=== PATIENT | male | born 1995 | race Two or more races ===

== ENCOUNTER 2017-04-09 18:28 | Emergency (ER) | payer OTHER ==
--- NOTE | 2017-04-09 20:46 | ED Physician Chart ---
ED Chief Complaint/HPI - Patient Information Date Seen:: 04/09/17 Time Seen:: 20:46 Chief Complaint:: Cough History of Present Illness:: 22 yo male developed cough, fever, chest congestion for 1 week. 100.9 at PCP 2 days ago. Was given promethazine. Still cough, Sore throat Allergies:: Allergies Allergy/AdvReac Type Severity Reaction Status Date / Time No Known Allergies Allergy Verified 04/09/17 18:43 Vitals:: Vital Signs - 8 hr 04/09/17 19:08 Temp 97.7 F HR 85 RR 17 BP 123/87 O2 Sat % 98 ED Past Medical History - Past Medical History Past Medical History: No significant medical hx Social History: Smoker, Alcohol, No Drug Use Surgical History: other (wisdom teeth removal) ED Septic Shock - <6hrs of presentation: Vital Signs: Vital Signs - 8 hr 04/09/17 19:08 Temp 97.7 F HR 85 RR 17 BP 123/87 O2 Sat % 98
[2017-04-09 21:31] LABS: % BASOPHILS 0.8 % (0.0-2.0); % EOSINOPHILS 2.3 % (0.0-5.0); % LYMPHOCYTES 35.3 % (20.0-50.0); % MONOCYTES 8.6 % (2.0-10.0); EOSINOPHILE ABSOLUTE 0.1 Th/cmm (0.1-0.4); HEMATOCRIT 41.9 % (41.0-60); HEMOGLOBIN 14.1 gm/dL (12-16); LYMPHOCYTE ABSOLUTE 1.2 Th/cmm (1.5-3.0); MEAN CELL VOLUME 88.8 fl (80-99); MEAN CORPUSCULAR HEMOGLOBIN 29.9 pg (26.0-30.0); MEAN CORPUSCULAR HGB CONC 33.7 pg (28.0-36.0); MEAN PLATELET VOLUME 8.8 fl; MONOCYTE ABSOLUTE 0.3 Th/cmm (0.3-1.0); NEUTROPHILE ABSOLUTE 1.7 Th/cmm (1.8-8.0); PLATELET COUNT 155 Th/cmm (150-400); RED BLOOD COUNT 4.72 Mil/cmm (4.30-5.70); RED CELL DISTRIBUTION WIDTH 11.3 % (11.5-20.0)
[2017-04-09 21:33] LABS: WHITE BLOOD COUNT 3.3 Th/cmm (4.8-10.8)
[2017-04-09 21:46] LABS: ALB/GLOB RATIO 1.9 (1.0-1.8); ALBUMIN 4.5 gm/dL (4.2-5.5); ALKALINE PHOSPHATASE 63 U/L (34-104); ANION GAP 10.1 (7.0-16.0); BILIRUBIN,TOTAL 0.4 mg/dL (0.3-1.0); BUN - UREA NITROGEN 8 mg/dL (7-25); CHLORIDE 104 mEq/L (98-107); CREATININE - SERUM 0.8 mg/dL (0.7-1.3); GFR AFRICAN-AMERICAN > 60.0 ml/min (>90); GFR NON AFRICAN-AMERICAN > 60.0 ml/min; GLUCOSE 93 mg/dL (70-105); POTASSIUM SERUM 4.1 mEq/L (3.5-5.1); SGOT 21 U/L (13-39); SGPT/ALT 15 U/L (7-52); SODIUM SERUM 136 mEq/L (136-145); TOTAL PROTEIN,SERUM 6.9 gm/dL (6.0-8.3)
--- NOTE | 2017-04-10 09:47 | Diagnostic Imaging Report ---
Portable chest x-ray History: Cough Allowing for portable technique the heart size is normal. No focal pulmonary parenchymal processes. No hilar or mediastinal abnormalities. Impression: No acute abnormalities.
== END 2017-04-09 22:48 | disposition home or self-care (01) ==
LOC: ER 18:28
DX: R05 Cough (principal); R50.9 Fever, unspecified; R07.89 Other chest pain; J02.9 Acute pharyngitis, unspecified; F17.200 Nicotine dependence, unspecified, uncomplicated
CPT/HCPCS: 99285; 96372; 71010; 36415; 83605; 85025; 80053; 87040; J0290

== ENCOUNTER 2018-10-23 23:53 | Emergency (ER) | payer MEDICAID, OTHER ==
--- NOTE | 2018-10-24 00:25 | ED Physician Chart ---
ED Chief Complaint/HPI - Patient Information Date Seen:: 10/24/18 Time Seen:: 00:10 Chief Complaint:: Transient syncope History of Present Illness:: Pt came in by private auto because pt reportedly had a transient episode of fainting that might have lasted a few seconds at about 11:30 pm last evening when he was having nausea/vomiting after eating many small donuts. Pt now feels better. No bodily pain or discomfort. Pt has been ambulatory and currently denies any chest pain, lightheadedness, palpitation, dyspnea, or other bodily pain/discomfort. Allergies:: Allergies Allergy/AdvReac Type Severity Reaction Status Date / Time No Known Allergies Allergy Verified 10/24/18 00:15 Vitals:: see Nurse Note Historian:: Patient Family MD/PCP:: unknown LMP:: N/A Review:: Nurse's Note Reviewed ED Review of Systems - Review of Systems General/Constitutional: No fever, No chills, No weight loss, No weakness, No edema, No loss of appetite Skin: No rash, No bruising Head: No headache, Light headed (transient) Eyes: No loss of vision, No pain, No diplopia ENT: No earache, No nasal drainage, No sore throat Neck: No neck pain, No swelling, No stiffness, No mass noted Cardio Vascular: No chest pain, No palpitations, No PND, No orthopnea Pulmonary: No SOB, No wheezing GI: Nausea (transient), Vomiting (transient with vomitus consists of gastric content. No hematemesis.), No pain G/U: No dysuria, No frequency, No hematuria Neurological: Syncope (?), No focal symptoms, No weakness, No paresthesia, No headache, No seizure, No dizziness, No confusion ED Past Medical History - Past Medical History Past Medical History: No significant medical hx Family History: Diabetes Mel[place] Social History: Smoker (Pt has been informed about health risks associated with tobacco use and has been advised to stop. Pt has been encouraged to enroll in a smoking cessation program. Pt acknowledges understanding.), Alcohol (rare use), Illicit Drug Use (with marijuana. Pt has been informed about health risks associated with the use of marijuana and has been advised to stop. Pt acknowledges understanding.), Single, Lives With Parents Employment:: unemployed. Surgical History: Appendectomy Medication: None Family Medical History - Family Member Mother History Unknown: Yes ED Physical Exam - Physical Examination General/Constitutional: Awake, Well-developed, well-nourished (male), Alert, No distress, Non-toxic appearing, Ambulatory Other Gen/Cons comments:: Breathes comfortably, speaks clearly, and interacts appropriately. Head: Atraumatic Eyes: Lids, conjuctiva normal, PERRL, EOMI Skin: Nl inspection, No skin lesions, Well hydrated, No lymphadenopathy ENMT: External ears, nose nl, Nasal exam nl, Oropharynx nl Neck: Nontender, Full ROM w/o pain, No JVD, No nuchal rigidity, No mass, No stridor Respiratory: Nl effort/Exclusion, Clear to Auscultation, No Wheeze/Rhonchi/Rales Cardio Vascular: RRR, No murmur, gallop, rubs GI: No tenderness/rebounding/guarding, No organomegaly, Normal BS's Other GI comments:: Abdomen is soft. : No CVA tenderness Extremities: No tenderness or effusion, Full ROM, No edema Neuro/Psych: Alert/oriented (oriented X 3), Mood normal, Normal gait, No focal deficits ED Labs/Radiology/EKG Results - Lab Results Results: Laboratory Tests 10/24/18 10/24/18 10/24/18 01:00 01:00 01:05 WBC 7.2 RBC 5.22 Hgb 16.2 Hct 45.6 MCV 87.3 MCH 31.0 H MCHC Differential 35.5 RDW 11.5 Plt Count 168 MPV 8.4 Neutrophils % 76.1 Lymphocytes % 18.4 L Monocytes % 3.9 Eosinophils % 0.5 Basophils % 1.1 PT INR PTT (Actin FS) Sodium Potassium Chloride Carbon Dioxide Anion Gap BUN Creatinine Est GFR ( Amer) Est GFR (Non-Af Amer) BUN/Creatinine Ratio Glucose Calcium Total Bilirubin AST ALT Alkaline Phosphatase Troponin I Total Protein Albumin Globulin Albumin/Globulin Ratio Urine Source CLEAN C Urine Color YELLOW Urine Clarity CLEAR Urine pH 6.5 Ur Specific [place] 1.020 Urine Protein NEGATIVE Urine Glucose (UA) NEGATIVE Urine Ketones NEGATIVE Urine Blood NEGATIVE Urine Nitrate NEGATIVE Urine Bilirubin NEGATIVE Urine Urobilinogen 0.2 Ur Leukocyte Esterase NEGATIVE Urine Opiates Screen NEGATIVE Urine Methadone Screen NEGATIVE Ur Barbiturates Screen NEGATIVE Ur Tricyclics Screen NEGATIVE Ur Phencyclidine Scrn NEGATIVE Amphetamines Screen NEGATIVE U Methamphetamines Scrn NEGATIVE U Benzodiazepines Scrn NEGATIVE U Cocaine Metab Screen NEGATIVE U Cannabinoids Screen POSITIVE H 10/24/18 10/24/18 10/24/18 01:05 01:05 01:05 WBC RBC Hgb Hct MCV MCH MCHC Differential RDW Plt Count MPV Neutrophils % Lymphocytes % Monocytes % Eosinophils % Basophils % PT 10.3 INR 0.99 PTT (Actin FS) 23.2 L Sodium 137 Potassium 3.7 Chloride 100 Carbon Dioxide 26.6 Anion Gap 14.1 BUN 12 Creatinine 1.0 Est GFR ( Amer) > 60.0 Est GFR (Non-Af Amer) > 60.0 BUN/Creatinine Ratio 12.0 Glucose 128 H Calcium 10.0 Total Bilirubin 0.5 AST 17 ALT 17 Alkaline Phosphatase 72 Troponin I 0.01 Total Protein 7.2 Albumin 4.8 Globulin 2.4 Albumin/Globulin Ratio 2.0 H Urine Source Urine Color Urine Clarity Urine pH Ur Specific [place] Urine Protein Urine Glucose (UA) Urine Ketones Urine Blood Urine Nitrate Urine Bilirubin Urine Urobilinogen Ur Leukocyte Esterase Urine Opiates Screen Urine Methadone Screen Ur Barbiturates Screen Ur Tricyclics Screen Ur Phencyclidine Scrn Amphetamines Screen U Methamphetamines Scrn U Benzodiazepines Scrn U Cocaine Metab Screen U Cannabinoids Screen - EKG Interpretations EKG Time:: 00:56 Rate & Rhythm: NSR with VR 79. Comments:: LAE. Incomplete RBBB and LAFB. NSSTT changes. ED Septic Shock - . Is Septic Shock (SBP<90, OR Lactate>4 mmol\L) present?: No ED Reassessment (Disposition) - Reassessment Reassessment:: 0220 Pt has been repeatedly evaluated. No recurrent N/V/D. Pt has been ambulatory without recurrent syncope or lightheadedness. Repeat body temperature is 99F. Lab and EKG findings have been reviewed with pt. Pt requests to go home now and does not want further observation/management in hospital. Aftercare instructions have been given. - Diagnosis Diagnosis:: Transient vasovagal reaction due to G.I. upset with nausea/vomiting. Resolved and currently asymptomatic. H/O marijuana use. - Aftercare/Follow up Instructions Notes:: Bed rest for today. Pt has been advised to stop marijuana use. Increase oral hydration. F/U with Dr. Ortiz or PCP of patient's choice in one day for recheck. Return to ER immediately if condition worsens or if any further questions/ problems. Medication Prescribed:: None - Patient Disposition Discharge/Transfer:: Home Time:: 02:30 Condition at Disposition:: Stable, Improved
[2018-10-24 01:15] LABS: % BASOPHILS 1.1 % (0.0-2.0); % EOSINOPHILS 0.5 % (0.0-5.0); % LYMPHOCYTES 18.4 % (20.0-50.0); % MONOCYTES 3.9 % (2.0-10.0); % NEUTROPHILS 76.1 % (40.0-80.0); BASOPHILE ABSOLUTE 0.1 Th/cumm (0-0.2); HEMATOCRIT 45.6 % (41.0-60); HEMOGLOBIN 16.2 gm/dL (12-16); LYMPHOCYTE ABSOLUTE 1.3 Th/cmm (1.5-3.0); MEAN CELL VOLUME 87.3 fl (80-99); MEAN CORPUSCULAR HGB CONC 35.5 pg (28.0-36.0); MONOCYTE ABSOLUTE 0.3 Th/cmm (0.3-1.0); NEUTROPHILE ABSOLUTE 5.5 Th/cmm (1.8-8.0); PLATELET COUNT 168 Th/cmm (150-400); RED BLOOD COUNT 5.22 Mil/cmm (4.30-5.70); RED CELL DISTRIBUTION WIDTH 11.5 % (11.5-20.0); WHITE BLOOD COUNT 7.2 Th/cmm (4.8-10.8)
[2018-10-24 01:33] LABS: INR 0.99 (0.5-1.4)
[2018-10-24 01:36] LABS: ALBUMIN 4.8 gm/dL (4.2-5.5); ALKALINE PHOSPHATASE 72 U/L (34-104); ANION GAP 14.1 (7.0-16.0); BILIRUBIN,TOTAL 0.5 mg/dL (0.3-1.0); BUN - UREA NITROGEN 12 mg/dL (7-25); CARBON DIOXIDE 26.6 mEq/L (21.0-31.0); CHLORIDE 100 mEq/L (98-107); GFR AFRICAN-AMERICAN > 60.0 ml/min (>90); GFR NON AFRICAN-AMERICAN > 60.0 ml/min; GLUCOSE 128 mg/dL (70-105); POTASSIUM SERUM 3.7 mEq/L (3.5-5.1); SGOT 17 U/L (13-39); SGPT/ALT 17 U/L (7-52); SODIUM SERUM 137 mEq/L (136-145); TOTAL PROTEIN,SERUM 7.2 gm/dL (6.0-8.3)
[2018-10-24 01:45] LABS: URINE SOURCE CLEAN C
[2018-10-24 01:55] LABS: URINE BILIRUBIN NEGATIVE (NEGATIVE); URINE BLOOD NEGATIVE (NEGATIVE); URINE GLUCOSE (UA) NEGATIVE (NEGATIVE); URINE KETONE NEGATIVE (NEGATIVE); URINE LEUKOCYTE ESTERASE NEGATIVE (NEGATIVE); URINE NITRATE NEGATIVE (NEGATIVE); URINE PH 6.5 (4.6 - 8.0); URINE PROTEIN NEGATIVE (NEGATIVE); URINE UROBILINOGEN 0.2 E.U./dL (0.2 - 1.0)
[2018-10-24 02:00] LABS: URINE CLARITY CLEAR (CLEAR); URINE COLOR YELLOW; URINE MICROSCOPIC INDICATED? NO
[2018-10-24 02:03] LABS: AMPHETAMINE URINE NEGATIVE (NEGATIVE); BARBITURATES URINE NEGATIVE (NEGATIVE); BENZODIAZEPINES QUAL URINE NEGATIVE (NEGATIVE); CANNABINOID THC POSITIVE (NEGATIVE); COCAINE METABOLITE QUAL URINE NEGATIVE (NEGATIVE); METHADONE URINE NEGATIVE (NEGATIVE); METHAMPHETAMINES QUAL URINE NEGATIVE (NEGATIVE); OPIATES (MORPHINE) QUAL. URINE NEGATIVE (NEGATIVE); PHENCYCLIDINE (PCP) URINE NEGATIVE (NEGATIVE); TRICYCLICS (TCA) QUAL. URINE NEGATIVE (NEGATIVE)
== END 2018-10-24 02:36 | disposition home or self-care (01) ==
LOC: ER 23:53
DX: R55 Syncope and collapse (principal); R11.2 Nausea with vomiting, unspecified; F12.90 Cannabis use, unspecified, uncomplicated; F17.210 Nicotine dependence, cigarettes, uncomplicated
CPT/HCPCS: 36415-UA; 80053-TC; 80307; 81003-TC; 84484-TC; 85025-TC; 85610-TC; 93005